=== PATIENT | male | born 1990 | race American Indian/Alaskan Native ===

== ENCOUNTER 2018-05-14 12:07 | Emergency (ER) | payer OTHER ==
[2018-05-14 13:12] VITALS: BP 121/69
--- NOTE | 2018-05-14 13:15 | Emergency Department Report ---
Blank Doc - Documentation Documentation: 27 y o male presents with sorethroat x couple days no airway compromise, no swelling, slight erythema ACC evaluate
--- NOTE | 2018-05-14 16:17 | Emergency Department Report ---
ED ENT HPI - General Chief complaint: Sore Throat Stated complaint: FEELING ILL Time Seen by Provider: 05/14/18 13:13 Source: patient Mode of arrival: Ambulatory Limitations: No Limitations - History of Present Illness Initial comments: This is a 27-year-old male who presents to ED complaining of throat pain for the past couple days. Patient denies fever since shows this nausea vomiting/difficulty swallowing. MD complaint: sore throat - Related Data Previous Rx's Medication Instructions Recorded Last Taken Type Amoxicillin [Amoxicillin 400 MG/5 400 mg PO Q8H #80 ml 05/14/18 Unknown Rx ML] Ibuprofen [Motrin] 800 mg PO Q8HR #30 tablet 05/14/18 Unknown Rx Nystas/Diphen/Xyl Visc/Mylanta 15 ml MM Q4H #120 ml 05/14/18 Unknown Rx [Magic Mouthwash] Allergies Allergy/AdvReac Type Severity Reaction Status Date / Time No Known Allergies Allergy Unverified 05/14/18 12:08 ED Dental HPI - General Chief complaint: Sore Throat Stated complaint: FEELING ILL Time Seen by Provider: 05/14/18 13:13 Source: patient Mode of arrival: Ambulatory Limitations: No Limitations - Related Data Previous Rx's Medication Instructions Recorded Last Taken Type Amoxicillin [Amoxicillin 400 MG/5 400 mg PO Q8H #80 ml 05/14/18 Unknown Rx ML] Ibuprofen [Motrin] 800 mg PO Q8HR #30 tablet 05/14/18 Unknown Rx Nystas/Diphen/Xyl Visc/Mylanta 15 ml MM Q4H #120 ml 05/14/18 Unknown Rx [Magic Mouthwash] Allergies Allergy/AdvReac Type Severity Reaction Status Date / Time No Known Allergies Allergy Unverified 05/14/18 12:08 ED Review of Systems ROS: Stated complaint: FEELING ILL Other details as noted in HPI Comment: All other systems reviewed and negative ED Past Medical Hx - Past Medical History Previous Medical History?: No - Surgical History Past Surgical History?: No - Social History Smoking Status: Current Every Day Smoker Substance Use Type: Alcohol - Medications Home Medications: Home Medications Medication Instructions Recorded Confirmed Last Taken Type Amoxicillin [Amoxicillin 400 MG/5 400 mg PO Q8H #80 ml 05/14/18 Unknown Rx ML] Ibuprofen [Motrin] 800 mg PO Q8HR #30 tablet 05/14/18 Unknown Rx Nystas/Diphen/Xyl Visc/Mylanta 15 ml MM Q4H #120 ml 05/14/18 Unknown Rx [Magic Mouthwash] ED Physical Exam - General Limitations: No Limitations General appearance: alert, in no apparent distress - Head Head exam: Present: atraumatic, normocephalic - Eye Eye exam: Present: normal appearance - ENT ENT exam: Present: normal exam, mucous membranes moist - Expanded ENT Exam Expanded Mouth exam: Present: normal external inspection. Absent: drooling, trismus, muffled voice, tongue elevation Teeth exam: Present: normal inspection Throat exam: Positive: tonsillar erythema. Negative: tonsillomegaly, tonsillar exudate, R peritonsillar mass, L peritonsillar mass - Neck Neck exam: Present: normal inspection, full ROM. Absent: tenderness, lymphadenopathy - Respiratory Respiratory exam: Present: normal lung sounds bilaterally. Absent: respiratory distress - Cardiovascular Cardiovascular Exam: Present: regular rate, normal rhythm. Absent: systolic murmur, diastolic murmur, rubs, gallop - GI/Abdominal GI/Abdominal exam: Present: soft, normal bowel sounds - Rectal Rectal exam: Present: deferred - Extremities Exam Extremities exam: Present: normal inspection - Back Exam Back exam: Present: normal inspection - Neurological Exam Neurological exam: Present: alert, oriented X3 - Psychiatric Psychiatric exam: Present: normal affect, normal mood - Skin Skin exam: Present: warm, dry, intact, normal color. Absent: rash ED Course Vital Signs 05/14/18 13:10 Temperature 98.7 F Pulse Rate 73 Respiratory 14 Rate Blood Pressure 121/69 O2 Sat by Pulse 98 Oximetry ED Medical Decision Making - Medical Decision Making 27-year-old male presents with pharyngitis. ED course: Patient received 1 dose of Tylenol, 60 mg of prednisone. Strep pharyngitis prophylaxis with Antibiotics Vital signs stable patient is in no acute or respiratory distress. Discussed treatment in ED with patient Discussed with patient follow-up with primary care physician. Patient verbally states he understands and will comply to follow-up. Critical care attestation.: If time is entered above; I have spent that time in minutes in the direct care of this critically ill patient, excluding procedure time. ED Disposition Clinical Impression: Acute erythematous tonsillitis Disposition: TO HOME OR SELFCARE Is pt being admited?: No Does the pt Need Aspirin: No Condition: Stable Instructions: Pharyngitis (ED), Strep Throat (ED), Tonsillitis (ED) Additional Instructions: DischargeMake sure to follow up with the primary care physician as discussed. Take all your medications as you've been prescribed. If you have any worsening symptoms or develop new symptoms please return to ED immediately. Prescriptions: Amoxicillin [Amoxicillin 400 MG/5 ML] 400 mg PO Q8H #80 ml Nystas/Diphen/Xyl Visc/Mylanta [Magic Mouthwash] 15 ml MM Q4H #120 ml Ibuprofen [Motrin] 800 mg PO Q8HR #30 tablet Referrals: VIDA DE GUZMAN MD [Primary Care Provider] - 3-5 Days Forms: Work/School Release Form(ED) Time of Disposition: 16:17
[2018-05-14] MEDS ORDERED: TYLENOL PO ONE (16:18)
[2018-05-14] MEDS ORDERED: DELTASONE PO ONE (16:18)
== END 2018-05-14 16:42 | disposition home or self-care (01) ==
LOC: ED 12:07
DX: J03.80 Acute tonsillitis due to other specified organisms (principal); F17.200 Nicotine dependence, unspecified, uncomplicated
CPT/HCPCS: 99282; J7512